=== PATIENT | female | born 1960 | race Caucasian/White ===

== ENCOUNTER 2016-05-03 13:14 | Inpatient (IN) | payer MEDICARE, MEDICAID ==
[~2016-05-03] VITALS: Ht 154.9 cm; Wt 69.3 kg
[~2016-05-03 13:14] MED LIST: ASPI325T6 PO; ASPIRIN 81M81 MG/TA2 PO; B COMPLEX #11 TA1 PO; BIO-STATIN1 POW; CHLOR TRIMETON 44 MG; DIFLUCAN 100MG100 MG PO; FIBERCON; FLEXERIL 1010 MG/TAB PO; FLEXERIL5 MG PO; FOLIC ACID 40400 MCG PO; GLUCOPHAGE XR500 M1 PO; GLUCOPHAGE1000 MG PO; GLUCOPHAGE850 MG/TAB PO; MIRALAX 255 GM255 GM PO; MOBIC15 MG PO; NORCO 325 MG-51 TAB PO; NORCO 325 MG-7.1 TAB PO; OXY IR5 MG PO; PERCOCET 325 MG1 TA2 PO; PRIL40 PO; PRINZIDE 12.5 M1 TAB PO; PROMETHAZINE12.5 M5 PO; SUDAFED 12 HOU120 MG PO; SYNTHROID0.075 MG/T PO; UNISOM25 MG PO; VITAMIN C500 MG PO; ZOCOR 10MG10 MG PO; ZOFRAN 4MG T4 MG/TAB PO
[2016-07-05] MEDS ORDERED: PRILOSEC 20MG20 MG PO (12:21)
[2016-07-05] MEDS ORDERED: NIFEREX-15150 MG/CAP PO (12:23)
[2016-07-06] VITALS (11 sets, daily range): BP systolic 95–136; BP diastolic 60–81; PULSE 85–105; TEMP 97.5–98.5
[2016-07-06] MEDS ORDERED: DIPROLENE OI 15GM TOP (07:19)
[2016-07-07 01:01] VITALS: BP 116/47; PULSE 63; TEMP 98.3
[2016-07-07 04:33] VITALS: BP 111/71; PULSE 78; TEMP 97.8
[2016-07-07 07:17] VITALS: BP 109/59; PULSE 66; TEMP 97.5
[2016-07-07 08:03] LABS: HEMATOCRIT 27.2 % (37.0-47.0); HEMOGLOBIN 8.9 g/dl (12.5-16.0)
[2016-07-07 11:37] VITALS: BP 128/61; PULSE 86; TEMP 97.8
[2016-07-07 15:54] VITALS: BP 123/70; PULSE 83; TEMP 97.7
[2016-07-07 20:01] VITALS: BP 145/59; PULSE 81; TEMP 97.5
[2016-07-08 00:45] VITALS: BP 112/56; PULSE 66; TEMP 97.5
[2016-07-08 04:21] VITALS: BP 104/44; PULSE 76; TEMP 98.5
[2016-07-08 07:09] VITALS: BP 123/70; PULSE 92; TEMP 98.1
[2016-07-08 07:49] LABS: HEMATOCRIT 28.4 % (37.0-47.0); HEMOGLOBIN 9.3 g/dl (12.5-16.0)
[2016-07-08] MEDS ORDERED: NORCO 325 MG-7.1 TAB PO (10:29)
[2016-07-08] MEDS ORDERED: ASPIRIN 32325 MG/TAB PO (10:30)
== END 2016-07-08 11:30 | disposition home or self-care (01) | DRG 470 ==
LOC: JCC 07-06 06:41
PROVIDERS: Orthopaedic Surgery
PROC: 0SRD0J9 Replacement of Left Knee Joint with Synthetic Substitute, Cemented, Open Approach (ICD-10-PCS; principal; 2016-07-06 10:25)
DX: M17.12 Unilateral primary osteoarthritis, left knee (principal); E11.9 Type 2 diabetes mellitus without complications; I10 Essential (primary) hypertension; Z87.891 Personal history of nicotine dependence
CPT/HCPCS: 99222; 99231-AI; A4315; A9284; C1713; C1776; J0690; J1200; J1815; J2250; J2704; J3010; J7030

== ENCOUNTER 2016-06-29 13:10 | Outpatient (RCR) | payer MEDICARE, MEDICAID, OTHER ==
[~2016-06-29 13:10] MED LIST changes: -ASPIRIN 32325 MG/TAB PO; -DIPROLENE OI 15GM TOP; -NIFEREX-15150 MG/CAP PO; -PRILOSEC 20MG20 MG PO
[2016-07-05] MEDS ORDERED: PRILOSEC 20MG20 MG PO (12:21)
[2016-07-05] MEDS ORDERED: NIFEREX-15150 MG/CAP PO (12:23)
[2016-07-06] MEDS ORDERED: DIPROLENE OI 15GM TOP (07:19)
[2016-07-08] MEDS ORDERED: NORCO 325 MG-7.1 TAB PO (10:29)
[2016-07-08] MEDS ORDERED: ASPIRIN 32325 MG/TAB PO (10:30)
== END 2016-07-07 11:48 | disposition still patient (30) ==
LOC: WSPT 13:10
DX: Z47.89 Encounter for other orthopedic aftercare (principal); M17.12 Unilateral primary osteoarthritis, left knee
CPT/HCPCS: G8978-GP; G8979-GP; G8980-GP

== ENCOUNTER → 2016-06-29 | Outpatient (CLI) | payer MEDICARE, MEDICAID ==
[~2016-06-29] MED LIST changes: +ASPIRIN 32325 MG/TAB PO; +DIPROLENE OI 15GM TOP; +NIFEREX-15150 MG/CAP PO; +PRILOSEC 20MG20 MG PO
[2016-06-29 12:37] LABS: HIV 1/2 Antibodies Non-Reactive; HIV-1p24 Antigen Non-Reactive
== END ==
LOC: COL.LAB 11:34
PROVIDERS: Orthopaedic Surgery
DX: Z01.812 Encounter for preprocedural laboratory examination (principal); M25.862 Other specified joint disorders, left knee

== ENCOUNTER 2016-08-25 13:30 | Outpatient (RCR) | payer MEDICARE, MEDICAID ==
[~2016-08-25 13:30] MED LIST changes: +ASPIRIN 32325 MG/TAB PO; +DIPROLENE OI 15GM TOP; +NIFEREX-15150 MG/CAP PO; +PRILOSEC 20MG20 MG PO
== END 2016-08-30 13:02 | disposition home or self-care (01) ==
LOC: WSPT 13:30
DX: M17.12 Unilateral primary osteoarthritis, left knee (principal)
CPT/HCPCS: G8978-GP; G8979-GP; G8980-GP

== ENCOUNTER → 2016-12-13 | Outpatient (CLI) | payer MEDICARE, MEDICAID | LOC: COL.RAD 11:54 | DX: M48.07 Spinal stenosis, lumbosacral region (principal); M47.817 Spondylosis without myelopathy or radiculopathy, lumbosacral region; M25.78 Osteophyte, vertebrae ==

== ENCOUNTER 2017-02-07 09:16 | Day surgery (SDC) | payer MEDICARE, MEDICAID ==
[~2017-02-07] VITALS: Ht 154.9 cm; Wt 71.9 kg
[2017-02-07] MEDS ORDERED: MOBIC15 MG PO (09:37)
[2017-02-07 10:05] VITALS: BP 139/75; PULSE 95; TEMP 97.9
[2017-02-07 11:57] VITALS: BP 166/88; PULSE 80; TEMP 97.8
[2017-02-07 12:12] VITALS: BP 158/80; PULSE 91
[2017-02-07 16:02] VITALS: BP 137/80; PULSE 85
== END 2017-02-07 12:30 | disposition home or self-care (01) ==
LOC: SDCO 09:16
DX: Z12.11 Encounter for screening for malignant neoplasm of colon (principal); D12.2 Benign neoplasm of ascending colon; K63.89 Other specified diseases of intestine; E11.9 Type 2 diabetes mellitus without complications; I10 Essential (primary) hypertension; E78.00 Pure hypercholesterolemia, unspecified; D64.9 Anemia, unspecified; M19.90 Unspecified osteoarthritis, unspecified site; K21.9 Gastro-esophageal reflux disease without esophagitis; E03.9 Hypothyroidism, unspecified; Z90.49 Acquired absence of other specified parts of digestive tract; Z96.653 Presence of artificial knee joint, bilateral; Z79.84 Long term (current) use of oral hypoglycemic drugs; Z87.891 Personal history of nicotine dependence
CPT/HCPCS: OP; J2405; J2704; J7030

== ENCOUNTER 2017-03-10 06:44 | Inpatient (IN) | payer MEDICARE ==
[~2017-03-10] VITALS: Ht 154.9 cm; Wt 71.8 kg
[~2017-03-10 06:44] MED LIST changes: +BACTROBAN15 GM TOP
[2017-03-10 07:42] LABS: HEMATOCRIT 38.4 % (37.0-47.0); MEAN CELL VOLUME 87 fl (80.0-100.0); MEAN CORPUSCULAR HEMOGLOBIN 30 pg (27.0-31.0); MEAN CORPUSCULAR HGB CONC 34 g/dl (33.0-37.0); MEAN PLATELET VOLUME 10.9 fl (7.4-10.4); PLATELET COUNT 273 K/mm3 (130-400); WHITE BLOOD COUNT 13.6 K/mm3 (4.8-10.8)
[2017-03-10 07:43] LABS: ADD PATHOLOGY DIFF REVIEW NO
[2017-03-10 07:55] LABS: ADJUSTED CALCIUM 9.1 mg/dL (8.4-10.2); ALBUMIN 5.4 gm/dL (3.5-5.0); BILIRUBIN,TOTAL 0.7 mg/dL (0.0-1.0); C-REACTIVE PROTEIN 0.9 mg/dL (0.0-0.9); CALCIUM 10.2 mg/dL (8.4-10.2); CREATININE, serum 1.15 mg/dL (0.52-1.25); POTASSIUM 3.8 mmol/L (3.4-5.0); TOTAL PROTEIN 7.8 gm/dL (6.4-8.2)
[2017-03-10 08:16] LABS: BAND 25 % (0-10); LYMPHOCYTE 6 % (20.0-51.0); NEUTROPHILS 66 % (42.0-75.2); PLATELET ESTIMATE NORMAL (NORMAL); TOTAL CELLS COUNTED 100
[2017-03-10 11:12] VITALS: BP 126/65; PULSE 114; TEMP 98.3
[2017-03-10 14:08] VITALS: BP 130/668; BP 130/68; PULSE 122; TEMP 98.4
[2017-03-10 17:40] VITALS: BP 115/56; PULSE 114; TEMP 99.1
[2017-03-10 21:51] VITALS: BP 119/64; PULSE 129; TEMP 99.7
[2017-03-11 02:09] VITALS: BP 102/58; PULSE 93; TEMP 99
[2017-03-11 05:23] VITALS: BP 113/50; BP 119/64; PULSE 129; PULSE 97; TEMP 9837; TEMP 99.7
[2017-03-11 06:18] LABS: MEAN CELL VOLUME 88 fl (80.0-100.0); MEAN CORPUSCULAR HGB CONC 34 g/dl (33.0-37.0); MEAN PLATELET VOLUME 10.4 fl (7.4-10.4); RED BLOOD COUNT 3.49 M/mm3 (4.10-5.30); WHITE BLOOD COUNT 4.4 K/mm3 (4.8-10.8)
[2017-03-11 06:21] LABS: HEMATOCRIT 30.6 % (37.0-47.0); HEMOGLOBIN 10.3 g/dl (12.5-16.0); MEAN CORPUSCULAR HEMOGLOBIN 30 pg (27.0-31.0); PLATELET COUNT 169 K/mm3 (130-400)
[2017-03-11 06:37] LABS: CALCIUM 8.5 mg/dL (8.4-10.2); CREATININE, serum 1.01 mg/dL (0.52-1.25); MAGNESIUM 1.1 mg/dL (1.6-2.3); PHOSPHOROUS 3.7 mg/dL (2.5-4.5); POTASSIUM 3.5 mmol/L (3.4-5.0)
[2017-03-11 07:29] LABS: MEAN CELL VOLUME 89 fl (80.0-100.0); MEAN CORPUSCULAR HGB CONC 33 g/dl (33.0-37.0); MEAN PLATELET VOLUME 10.9 fl (7.4-10.4); PLATELET COUNT 174 K/mm3 (130-400); RED BLOOD COUNT 3.47 M/mm3 (4.10-5.30); WHITE BLOOD COUNT 4.3 K/mm3 (4.8-10.8)
[2017-03-11 07:31] LABS: HEMATOCRIT 30.7 % (37.0-47.0); HEMOGLOBIN 10.2 g/dl (12.5-16.0); MEAN CORPUSCULAR HEMOGLOBIN 29 pg (27.0-31.0)
[2017-03-11 09:22] VITALS: BP 120/64; PULSE 86; TEMP 98.4
[2017-03-11 14:00] VITALS: BP 122/62; PULSE 74; TEMP 98.7
[2017-03-11 17:55] VITALS: BP 117/58; PULSE 85; TEMP 98.6
[2017-03-11 21:24] VITALS: BP 123/61; PULSE 81; TEMP 97.3
[2017-03-12 01:30] VITALS: BP 135/64; PULSE 85; TEMP 98.8
[2017-03-12 04:57] VITALS: BP 111/57; PULSE 97; TEMP 99.2
[2017-03-12 06:44] LABS: BASO % 0.3 % (0.0-2.0); EOS # 0.1 (0.0-0.7); EOS % 1.3 % (0-4.0); GRAN # 2.5 (1.4-6.5); GRAN % 64.6 % (42.2-75.2); HEMATOCRIT 28.2 % (37.0-47.0); HEMOGLOBIN 9.4 g/dl (12.5-16.0); LYMPH # 0.9 (1.2-3.4); MEAN CELL VOLUME 87 fl (80.0-100.0); MEAN CORPUSCULAR HEMOGLOBIN 29 pg (27.0-31.0); MEAN CORPUSCULAR HGB CONC 33 g/dl (33.0-37.0); MEAN PLATELET VOLUME 11.1 fl (7.4-10.4); MONO # 0.4 (0.1-0.6); MONO % 9.3 % (1.7-9.3); PLATELET COUNT 171 K/mm3 (130-400); RED BLOOD COUNT 3.23 M/mm3 (4.10-5.30); WHITE BLOOD COUNT 3.9 K/mm3 (4.8-10.8)
[2017-03-12 07:04] LABS: CALCIUM 8.6 mg/dL (8.4-10.2); CREATININE, serum 0.91 mg/dL (0.52-1.25); MAGNESIUM 1.8 mg/dL (1.6-2.3); POTASSIUM 3.3 mmol/L (3.4-5.0)
[2017-03-12 09:06] VITALS: BP 128/71; PULSE 87; TEMP 98.3
== END 2017-03-12 10:30 | disposition home or self-care (01) | DRG 392 ==
LOC: COL.ER 06:44 → SURG 10:42
PROVIDERS: Nurse Practitioner; Surgery
DX: A08.4 Viral intestinal infection, unspecified (principal); E11.9 Type 2 diabetes mellitus without complications; K21.9 Gastro-esophageal reflux disease without esophagitis; E83.42 Hypomagnesemia; D64.9 Anemia, unspecified; Z79.4 Long term (current) use of insulin
CPT/HCPCS: J1170; J2405; J3010; J3475; J7030; J7050; J7120; Q9967

== ENCOUNTER 2017-05-05 14:00 | Outpatient (RCR) | payer MEDICARE ==
[2017-05-10] MEDS ORDERED: ANTIVERT 25MG25 MG PO (06:37)
[2017-05-10] MEDS ORDERED: LIORESAL 1010 MG/TAB PO (06:38)
[2017-05-10] MEDS ORDERED: FLONASEALLERGY NS (06:40)
[2017-05-30] MEDS ORDERED: LEVAQUIN 5500 MG/TA1 PO (06:03)
[2017-05-30] MEDS ORDERED: FLAGYL500 MG PO (06:03)
[2017-05-30] MEDS ORDERED: PERCOCET 325 MG1 TA2 PO (06:06)
[2017-05-30] MEDS ORDERED: ALEVE 220MG220 MG PO (10:54)
[2017-06-03] MEDS ORDERED: CEPHALEXIN500 M1 PO (09:47)
[2017-06-03] MEDS ORDERED: ROXICODONE 55 MG/TAB PO (09:48)
== END 2017-07-03 | disposition home or self-care (01) ==
LOC: MKS.ESL.PT
DX: M54.2 Cervicalgia (principal); Z88.5 Allergy status to narcotic agent; Z88.2 Allergy status to sulfonamides; Z79.84 Long term (current) use of oral hypoglycemic drugs
CPT/HCPCS: G8978-GP; G8979-GP

== ENCOUNTER 2017-05-10 05:44 | Day surgery (SDC) | payer MEDICARE ==
[~2017-05-10] VITALS: Ht 154.9 cm; Wt 75.2 kg
[2017-05-10] VITALS (12 sets, daily range): BP systolic 110–137; BP diastolic 45–77; PULSE 77–98; TEMP 97.5–98.7
[2017-05-10] MEDS ORDERED: ANTIVERT 25MG25 MG PO (06:37)
[2017-05-10] MEDS ORDERED: LIORESAL 1010 MG/TAB PO (06:38)
[2017-05-10] MEDS ORDERED: FLONASEALLERGY NS (06:40)
[2017-05-11 05:49] VITALS: BP 105/51; PULSE 78; TEMP 98.4
[2017-05-11 09:21] VITALS: BP 120/60; PULSE 89; TEMP 97.9
[2017-05-11 14:12] VITALS: BP 113/66; PULSE 95; TEMP 97.7
== END 2017-05-11 15:50 | disposition home or self-care (01) ==
LOC: SURG 05:44 → INPTSU 05:44 → SDCO 05:44 → SURG 07:30 → EDSTATUS 07:30 → SURG 11:00 → INPTSU 11:00 → SURG 11:45 → SDCO 05-11 15:50
DX: K43.2 Incisional hernia without obstruction or gangrene (principal); I10 Essential (primary) hypertension; E78.00 Pure hypercholesterolemia, unspecified; E11.9 Type 2 diabetes mellitus without complications; K21.9 Gastro-esophageal reflux disease without esophagitis; M19.90 Unspecified osteoarthritis, unspecified site; E03.9 Hypothyroidism, unspecified; G43.909 Migraine, unspecified, not intractable, without status migrainosus; D64.9 Anemia, unspecified; Z79.84 Long term (current) use of oral hypoglycemic drugs; Z90.710 Acquired absence of both cervix and uterus; Z90.49 Acquired absence of other specified parts of digestive tract; Z96.653 Presence of artificial knee joint, bilateral; Z87.891 Personal history of nicotine dependence
CPT/HCPCS: OP; A4314; A9284; C1713; C1781; J0690; J1100; J1885; J2405; J2704; J2710; J3010; J7030

== ENCOUNTER 2017-05-30 03:09 | Inpatient (IN) | payer MEDICARE ==
[~2017-05-30] VITALS: Ht 154.9 cm; Wt 76.1 kg
[~2017-05-30 03:09] MED LIST changes: +ANTIVERT 25MG25 MG PO; +FLONASEALLERGY NS; +LIORESAL 1010 MG/TAB PO
[2017-05-30 03:59] LABS: BASO # 0.1 (0.0-0.2); BASO % 0.4 % (0.0-2.0); EOS # 0.5 (0.0-0.7); EOS % 3.3 % (0-4.0); GRAN # 11.5 (1.4-6.5); GRAN % 80.4 % (42.2-75.2); HEMATOCRIT 31.7 % (37.0-47.0); HEMOGLOBIN 10.5 g/dl (12.5-16.0); LYMPH # 1.2 (1.2-3.4); LYMPH % 8.5 % (20.0-51.0); MEAN CELL VOLUME 87 fl (80.0-100.0); MEAN CORPUSCULAR HEMOGLOBIN 29 pg (27.0-31.0); MEAN CORPUSCULAR HGB CONC 33 g/dl (33.0-37.0); MEAN PLATELET VOLUME 10.5 fl (7.4-10.4); MONO % 6.8 % (1.7-9.3); PLATELET COUNT 285 K/mm3 (130-400); RED BLOOD COUNT 3.63 M/mm3 (4.10-5.30); REDCELL DISTRIBUTION WIDTH-CV 14.2 % (11.5-14.5)
[2017-05-30 04:13] LABS: ALBUMIN 4.7 gm/dL (3.5-5.0); BILIRUBIN,TOTAL 0.4 mg/dL (0.0-1.0); C-REACTIVE PROTEIN 5.6 mg/dL (0.0-0.9); CALCIUM 9.5 mg/dL (8.4-10.2); CREATININE, serum 1.17 mg/dL (0.52-1.25); TOTAL PROTEIN 7.3 gm/dL (6.4-8.2)
[2017-05-30 05:45] LABS: COLLECTION METHOD CLEAN CATCH
[2017-05-30 05:54] LABS: MUCOUS Present /lpf; PH 5 (5-8); SQUAMOUS EPITHELIAL 0-2 /hpf; URINE APPEARANCE Clear; URINE BACTERIA None Seen /hpf; URINE BILIRUBIN Negative (NEGATIVE); URINE BLOOD Negative (NEGATIVE); URINE COLOR Straw; URINE GLUCOSE Negative (NEGATIVE); URINE KETONE Negative (NEGATIVE); URINE LEUKOCYTE ESTERASE Negative (NEGATIVE); URINE NITRATE Negative (NEGATIVE); URINE PROTEIN(semi-quant) Negative (NEGATIVE); URINE RBC 0-2 /hpf; URINE UROBILINOGEN Negative (NEGATIVE)
[2017-05-30] MEDS ORDERED: LEVAQUIN 5500 MG/TA1 PO (06:03)
[2017-05-30] MEDS ORDERED: FLAGYL500 MG PO (06:03)
[2017-05-30] MEDS ORDERED: PERCOCET 325 MG1 TA2 PO (06:06)
[2017-05-30 08:48] VITALS: BP 114/59; PULSE 99; TEMP 98.4
[2017-05-30] MEDS ORDERED: ALEVE 220MG220 MG PO (10:54)
[2017-05-30 13:31] VITALS: BP 113/63; PULSE 96; TEMP 98.6
[2017-05-30 17:51] VITALS: BP 127/56; PULSE 99; TEMP 100.7
[2017-05-30 21:51] VITALS: BP 137/60; PULSE 107; TEMP 100
[2017-05-31] VITALS (7 sets, daily range): BP systolic 107–135; BP diastolic 52–71; PULSE 85–99; TEMP 97.3–100.5
[2017-05-31 06:30] LABS: BASO % 0.3 % (0.0-2.0); EOS # 0.6 (0.0-0.7); EOS % 5.2 % (0-4.0); GRAN # 8.2 (1.4-6.5); GRAN % 73.2 % (42.2-75.2); LYMPH # 1.6 (1.2-3.4); LYMPH % 14.3 % (20.0-51.0); MEAN CELL VOLUME 90 fl (80.0-100.0); MEAN CORPUSCULAR HGB CONC 32 g/dl (33.0-37.0); MEAN PLATELET VOLUME 10.9 fl (7.4-10.4); MONO # 0.7 (0.1-0.6); MONO % 6.6 % (1.7-9.3); PLATELET COUNT 220 K/mm3 (130-400); RED BLOOD COUNT 2.85 M/mm3 (4.10-5.30); REDCELL DISTRIBUTION WIDTH-CV 14.3 % (11.5-14.5)
[2017-05-31 06:58] LABS: HEMATOCRIT 25.5 % (37.0-47.0); HEMOGLOBIN 8.1 g/dl (12.5-16.0); MEAN CORPUSCULAR HEMOGLOBIN 28 pg (27.0-31.0)
[2017-06-01 01:25] VITALS: BP 110/45; PULSE 83; TEMP 98.3
[2017-06-01 04:56] VITALS: BP 111/47; PULSE 76; TEMP 98.3
[2017-06-01 07:13] LABS: MEAN CELL VOLUME 89 fl (80.0-100.0); MEAN CORPUSCULAR HGB CONC 32 g/dl (33.0-37.0); PLATELET COUNT 225 K/mm3 (130-400); RED BLOOD COUNT 2.83 M/mm3 (4.10-5.30); REDCELL DISTRIBUTION WIDTH-CV 14.3 % (11.5-14.5)
[2017-06-01 07:30] LABS: HEMATOCRIT 25.1 % (37.0-47.0); HEMOGLOBIN 8.1 g/dl (12.5-16.0); MEAN CORPUSCULAR HEMOGLOBIN 29 pg (27.0-31.0)
[2017-06-01 10:10] VITALS: BP 106/54; PULSE 91; TEMP 98.1
[2017-06-01 10:14] LABS: BAND 19 % (0-10); HYPOCHROMIA 2+; LYMPHOCYTE 21 % (20.0-51.0); NEUTROPHILS 60 % (42.0-75.2); PLATELET ESTIMATE NORMAL (NORMAL)
[2017-06-01 14:04] VITALS: BP 96/68; PULSE 79; TEMP 98.5
[2017-06-01 17:30] VITALS: BP 120/49; PULSE 80; TEMP 98.5
[2017-06-01 22:26] VITALS: BP 137/65; PULSE 81; TEMP 99.4
[2017-06-02 02:00] VITALS: BP 114/62; BP 134/54; PULSE 75; PULSE 87; TEMP 98.3; TEMP 98.9
[2017-06-02 05:26] VITALS: BP 99/53; PULSE 73; TEMP 98.7
[2017-06-02 07:40] LABS: HEMATOCRIT 25.5 % (37.0-47.0); HEMOGLOBIN 8.3 g/dl (12.5-16.0); MEAN CELL VOLUME 88 fl (80.0-100.0); MEAN CORPUSCULAR HEMOGLOBIN 29 pg (27.0-31.0); MEAN CORPUSCULAR HGB CONC 33 g/dl (33.0-37.0); MEAN PLATELET VOLUME 10.6 fl (7.4-10.4); PLATELET COUNT 245 K/mm3 (130-400); RED BLOOD COUNT 2.91 M/mm3 (4.10-5.30); REDCELL DISTRIBUTION WIDTH-CV 14.2 % (11.5-14.5)
[2017-06-02 07:48] LABS: CALCIUM 8.9 mg/dL (8.4-10.2); CREATININE, serum 1.11 mg/dL (0.52-1.25); POTASSIUM 3.5 mmol/L (3.4-5.0)
[2017-06-02 10:03] VITALS: BP 92/58; PULSE 92; TEMP 98.1
[2017-06-02 11:25] LABS: BAND 1 % (0-10); EOSINOPHIL 7 % (0-4); LYMPHOCYTE 23 % (20.0-51.0); NEUTROPHILS 61 % (42.0-75.2)
[2017-06-02 11:27] LABS: PLATELET ESTIMATE NORMAL (NORMAL)
[2017-06-02 13:54] VITALS: BP 105/60; PULSE 93; TEMP 98.4
[2017-06-02 17:46] VITALS: BP 115/58; PULSE 98; TEMP 98.2
[2017-06-02 21:24] VITALS: BP 127/64; PULSE 91; TEMP 99.1
[2017-06-03 01:57] VITALS: TEMP 98.1
[2017-06-03 04:53] VITALS: BP 112/55; PULSE 71; TEMP 98.2
[2017-06-03 09:46] VITALS: BP 114/49; PULSE 85; TEMP 98.3
[2017-06-03] MEDS ORDERED: CEPHALEXIN500 M1 PO (09:47)
[2017-06-03] MEDS ORDERED: ROXICODONE 55 MG/TAB PO (09:48)
== END 2017-06-03 11:00 | disposition home or self-care (01) | DRG 863 ==
LOC: COL.ER 03:09 → SURG 07:07
PROVIDERS: Emergency Medicine; Surgery
DX: T81.4XXA Infection following a procedure, initial encounter (principal); L03.311 Cellulitis of abdominal wall; I10 Essential (primary) hypertension; E11.9 Type 2 diabetes mellitus without complications; B95.61 Methicillin susceptible Staphylococcus aureus infection as the cause of diseases classified elsewhere; Z93.3 Colostomy status
CPT/HCPCS: G0378; J0690; J0696; J1650; J1815; J2405; J3010; J3370; J7030; J7040; J7050; Q9967

== ENCOUNTER → 2017-07-17 | Outpatient (CLI) | payer MEDICARE, MEDICAID ==
[~2017-07-17] MED LIST changes: +ALEVE 220MG220 MG PO; +CEPHALEXIN500 M1 PO; +FLAGYL500 MG PO; +LEVAQUIN 5500 MG/TA1 PO; +ROXICODONE 55 MG/TAB PO
[2017-07-17 13:11] LABS: CREATININE, serum 1.25 mg/dL (0.52-1.25)
== END ==
LOC: COL.LAB 10:14
PROVIDERS: Psychiatry & Neurology Neurology
DX: R51 Headache (principal); R42 Dizziness and giddiness

== ENCOUNTER → 2017-07-20 | Outpatient (CLI) | payer MEDICARE, MEDICAID, OTHER | LOC: COL.VAS 08:40 | DX: R42 Dizziness and giddiness (principal); R51 Headache; Z01.812 Encounter for preprocedural laboratory examination | CPT/HCPCS: A9585 ==